=== PATIENT | male | born 1975 | race Two or more races ===

== ENCOUNTER 2020-06-24 19:34 | Emergency (ER) | payer OTHER ==
[~2020-06-24] VITALS: Ht 182.9 cm; Wt 104.5 kg
== END 2020-06-24 20:30 | disposition home or self-care (01) ==
LOC: ER 19:34
DX: S00.81XA Abrasion of other part of head, initial encounter (principal); Y35.893A Legal intervention involving other specified means, suspect injured, initial encounter; Y93.89 Activity, other specified; Y92.488 Other paved roadways as the place of occurrence of the external cause
CPT/HCPCS: 99283